=== PATIENT | female | born 1945 | race Caucasian/White ===

== ENCOUNTER 2017-07-11 18:46 | Inpatient (IN) | payer MEDICARE, MEDICAID ==
--- NOTE | 2017-07-11 19:27 | ED Physician Chart ---
ED Chief Complaint/HPI - Patient Information Date Seen:: 07/11/17 Time Seen:: 19:26 Chief Complaint:: Increased agitation History of Present Illness:: 72 yo female was brought from to ER for evaluation of increased agitation, restlessness and crying episodes. When she was in ER, she was restless crying constantly. Allergies:: Allergies Allergy/AdvReac Type Severity Reaction Status Date / Time No Known Allergies Allergy Verified 07/11/17 19:09 Vitals:: Vital Signs - 8 hr 07/11/17 19:01 Temp 97.1 F HR 115 RR 22 BP 97/56 O2 Sat % 97 ED Review of Systems - Review of Systems General/Constitutional: No fever Skin: No skin lesions Head: No headache Eyes: No pain ENT: No nasal drainage Neck: No neck pain Cardio Vascular: No chest pain Pulmonary: No cough GI: No nausea, No vomiting Musculoskeletal: No bone or joint pain Psychiatric: Prior psych history Neurological: Weakness ED Past Medical History - Past Medical History Past Medical History: CVA/TIA (left hemiparesis), Dyslipidemia, PUD/GERD, Other (Anemia, CKD 3, Diverticulosis, Hypertension, diaphragmatic hernia, Paroxysmal Afib) Social History: Non Smoker, No Alcohol, No Drug Use Psychiatricy History: Depression Family Medical History - Family Member Mother History Unknown: Yes ED Physical Exam - Physical Examination General/Constitutional: Awake Head: Atraumatic Eyes: PERRL Skin: No skin lesions ENMT: Nasal exam nl Neck: Nontender Respiratory: No Wheeze/Rhonchi/Rales Cardio Vascular: No murmur, gallop, rubs, NL S1 S2 Other Cardio Vascular comments:: IRR GI: No tenderness/rebounding/guarding Other comments:: wearing diaper Other Neuro/Psych comments:: LUE 2/5, LLE 2/5, RUE 5/5, RLE 5/5 ED Labs/Radiology/EKG Results - Lab Results Results: Laboratory Last Values WBC 9.1 Th/cmm (4.8-10.8) 07/11/17 19:45 RBC 4.04 Mil/cmm (3.80-5.20) 07/11/17 19:45 Hgb 11.8 gm/dL (12-16) L 07/11/17 19:45 Hct 35.3 % (41.0-60) L 07/11/17 19:45 MCV 87.4 fl (81-100) 07/11/17 19:45 MCH 29.2 pg (27.0-31.0) 07/11/17 19:45 MCHC Differential 33.4 pg (28.0-36.0) 07/11/17 19:45 RDW 17.8 % (11.5-20.0) 07/11/17 19:45 Plt Count 300 Th/cmm (150-400) 07/11/17 19:45 MPV 8.7 fl 07/11/17 19:45 Neutrophils % 70.1 % (40.0-80.0) 07/11/17 19:45 Lymphocytes % 23.7 % (20.0-50.0) 07/11/17 19:45 Monocytes % 4.9 % (2.0-10.0) 07/11/17 19:45 Eosinophils % 0.8 % (0.0-5.0) 07/11/17 19:45 Basophils % 0.5 % (0.0-2.0) 07/11/17 19:45 Sodium 137 mEq/L (136-145) 07/11/17 19:45 Potassium 3.9 mEq/L (3.5-5.1) 07/11/17 19:45 Chloride 107 mEq/L (98-107) 07/11/17 19:45 Carbon Dioxide 16.9 mEq/L (21.0-31.0) L 07/11/17 19:45 Anion Gap 17.0 (7.0-16.0) H 07/11/17 19:45 BUN 21 mg/dL (7-25) 07/11/17 19:45 Creatinine 1.1 mg/dL (0.6-1.2) 07/11/17 19:45 Est GFR ( Amer) TNP 07/11/17 19:45 Est GFR (Non-Af Amer) TNP 07/11/17 19:45 BUN/Creatinine Ratio 19.1 07/11/17 19:45 Glucose 124 mg/dL (70-105) H 07/11/17 19:45 Calcium 9.6 mg/dL (8.6-10.3) 07/11/17 19:45 Magnesium 2.1 mg/dL (1.9-2.7) 07/11/17 19:45 Total Bilirubin 0.7 mg/dL (0.3-1.0) 07/11/17 19:45 AST 19 U/L (13-39) 07/11/17 19:45 ALT 12 U/L (7-52) 07/11/17 19:45 Alkaline Phosphatase 56 U/L (34-104) 07/11/17 19:45 Troponin I 0.01 ng/mL (0.01-0.05) 07/11/17 19:45 B-Natriuretic Peptide 194.0 pg/mL (5.0-100.0) H 07/11/17 19:45 Total Protein 7.5 gm/dL (6.0-8.3) 07/11/17 19:45 Albumin 4.0 gm/dL (3.7-5.3) 07/11/17 19:45 Globulin 3.5 gm/dL 07/11/17 19:45 Albumin/Globulin Ratio 1.1 (1.0-1.8) 07/11/17 19:45 Urine Source RANDOM 07/11/17 19:20 Urine Color YELLOW 07/11/17 19:20 Urine Clarity CLEAR (CLEAR) 07/11/17 19:20 Urine pH 8.5 (4.6 - 8.0) 07/11/17 19:20 Ur Specific Otho 1.015 (1.005-1.030) 07/11/17 19:20 Urine Protein NEGATIVE mg/dL (NEGATIVE) 07/11/17 19:20 Urine Glucose (UA) NEGATIVE mg/dL (NEGATIVE) 07/11/17 19:20 Urine Ketones NEGATIVE mg/dL (NEGATIVE) 07/11/17 19:20 Urine Blood NEGATIVE (NEGATIVE) 07/11/17 19:20 Urine Nitrate NEGATIVE (NEGATIVE) 07/11/17 19:20 Urine Bilirubin NEGATIVE (NEGATIVE) 07/11/17 19:20 Urine Urobilinogen 0.2 E.U./dL (0.2 - 1.0) 07/11/17 19:20 Ur Leukocyte Esterase NEGATIVE (NEGATIVE) 07/11/17 19:20 - Radiology Results Results: CXR: Cardiomegaly - EKG Interpretations EKG Time:: 19:55 Rate & Rhythm: 120 bpm, Atrial fibrillation Comments:: Ventricular premature complex, non-specific ST depression ED Assessment - Assessment General Assessment: CHF History of CVA with left hemiparesis Normocytic anemia Dehydration Psychosis Assessment/Comments:: CBC, CMP, UA CXR, EKG Haldol 5mg IM x 1 NS 1L IV bolus (It was hard to establish IV access due to restlessness of patient) Cleared for avinash admit ED Septic Shock - . Is Septic Shock (SBP<90, OR Lactate>4 mmol\L) present?: No - <6hrs of presentation: Vital Signs: Vital Signs - 8 hr 07/11/17 19:01 Temp 97.1 F HR 115 RR 22 BP 97/56 O2 Sat % 97 ED Reassessment (Disposition) - Reassessment Reassessment Condition:: Unchanged - Patient Disposition Discharge/Transfer:: Avinash w/in this hosp
[2017-07-11 19:57] LABS: % BASOPHILS 0.5 % (0.0-2.0); % EOSINOPHILS 0.8 % (0.0-5.0); % LYMPHOCYTES 23.7 % (20.0-50.0); % MONOCYTES 4.9 % (2.0-10.0); % NEUTROPHILS 70.1 % (40.0-80.0); EOSINOPHILE ABSOLUTE 0.1 Th/cmm (0.1-0.4); HEMATOCRIT 35.3 % (41.0-60); HEMOGLOBIN 11.8 gm/dL (12-16); LYMPHOCYTE ABSOLUTE 2.2 Th/cmm (1.5-3.0); MEAN CELL VOLUME 87.4 fl (81-100); MEAN CORPUSCULAR HEMOGLOBIN 29.2 pg (27.0-31.0); MEAN CORPUSCULAR HGB CONC 33.4 pg (28.0-36.0); MEAN PLATELET VOLUME 8.7 fl; MONOCYTE ABSOLUTE 0.4 Th/cmm (0.3-1.0); NEUTROPHILE ABSOLUTE 6.4 Th/cmm (1.8-8.0); PLATELET COUNT 300 Th/cmm (150-400); RED BLOOD COUNT 4.04 Mil/cmm (3.80-5.20); RED CELL DISTRIBUTION WIDTH 17.8 % (11.5-20.0); WHITE BLOOD COUNT 9.1 Th/cmm (4.8-10.8)
[2017-07-11] MEDS ORDERED: Haloperidol Lactate 5 mg/mL 1mL Vial IM STA (20:08)
[2017-07-11] MEDS ORDERED: Haloperidol Lactate 5 mg/mL 1mL Vial ONE (20:11)
[2017-07-11 20:13] LABS: ALB/GLOB RATIO 1.1 (1.0-1.8); ALKALINE PHOSPHATASE 56 U/L (34-104); BILIRUBIN,TOTAL 0.7 mg/dL (0.3-1.0); BUN - UREA NITROGEN 21 mg/dL (7-25); CALCIUM SERUM 9.6 mg/dL (8.6-10.3); CARBON DIOXIDE 16.9 mEq/L (21.0-31.0); CHLORIDE 107 mEq/L (98-107); CREATININE - SERUM 1.1 mg/dL (0.6-1.2); GLUCOSE 124 mg/dL (70-105); MAGNESIUM 2.1 mg/dL (1.9-2.7); POTASSIUM SERUM 3.9 mEq/L (3.5-5.1); SGOT 19 U/L (13-39); SGPT/ALT 12 U/L (7-52); SODIUM SERUM 137 mEq/L (136-145); TOTAL PROTEIN,SERUM 7.5 gm/dL (6.0-8.3)
[2017-07-11 20:21] LABS: URINE SOURCE RANDOM
[2017-07-11 20:59] LABS: URINE BILIRUBIN NEGATIVE (NEGATIVE); URINE BLOOD NEGATIVE (NEGATIVE); URINE GLUCOSE (UA) NEGATIVE (NEGATIVE); URINE KETONE NEGATIVE (NEGATIVE); URINE LEUKOCYTE ESTERASE NEGATIVE (NEGATIVE); URINE NITRATE NEGATIVE (NEGATIVE); URINE PH 8.5 (4.6 - 8.0); URINE PROTEIN NEGATIVE (NEGATIVE); URINE UROBILINOGEN 0.2 E.U./dL (0.2 - 1.0)
[2017-07-11 21:02] LABS: URINE CLARITY CLEAR (CLEAR); URINE COLOR YELLOW; URINE MICROSCOPIC INDICATED? NO
[2017-07-11] MEDS ORDERED: Sodium Chloride 0.9% 1,000 ML IV ONE (21:11)
[2017-07-11] MEDS ORDERED: Maalox 30 mL Cup PO PRN (22:24)
[2017-07-11 23:47] LABS: INR 2.24 (0.5-1.4); PROTHROMBIN TIME (TEST) 24.3 SECONDS (9.5-11.5)
[2017-07-12] MEDS: INSULIN ASPART, RECOMBINANT 100 UNITS/ML SUBQ SCH ×2 (06:38→21:57)
--- NOTE | 2017-07-12 07:53 | Diagnostic Imaging Report ---
CHEST X-RAY: AP view INDICATION: Shortness of breath COMPARISON: None FINDINGS: Increased interstitial lung markings are noted. No focal consolidation or effusions. Cardiomegaly is noted with atherosclerosis. Degenerative changes of spine are noted. Gas-filled loops of bowel of the upper abdomen are noted. IMPRESSION: Increased interstitial lung markings which may represent a mild degree of congestion. Please correlate with clinical findings. No focal consolidation identified. Cardiomegaly and atherosclerotic vascular disease.
[2017-07-12] MEDS: Multivitamin w/ Minerals Tab PO SCH (08:43)
[2017-07-12] MEDS: Pantoprazole 40 mg EC Tab PO SCH (10:52)
--- NOTE | 2017-07-13 05:21 | History & Physical ---
ADMIT DATE: 07/11/2017 INTERNAL MEDICINE CONSULTATION HISTORY OF PRESENT ILLNESS: The patient is a patient of [facility], 72-year-old female, resident of a assisted. PAST MEDICAL HISTORY: Significant for diabetes mellitus, diabetic angiopathy, neuropathy, nephropathy, hypertension, coronary artery disease, CVA with left hemiplegia, paroxysmal atrial fibrillation, peptic ulcer disease, gastritis, arthritis, osteoporosis, anemia, hyperlipidemia and dementia. SOCIAL HISTORY: No documented smoking or alcohol abuse. FAMILY HISTORY: Not available. REVIEW OF SYSTEMS: No vomiting, no diarrhea, no melena, no hematochezia. No new neurological symptoms. PHYSICAL EXAMINATION: GENERAL: Average female in no obvious respiratory distress. VITAL SIGNS: Include a blood pressure of 110/70, heart rate 88, respiration rate of 18. SKIN: Shows no cellulitis. HEENT: Normal conjunctivae. NECK: Supple. LUNGS: Clear. HEART: First and second present. ABDOMEN: Soft, minimal epigastric tenderness. Bowel sounds present. EXTREMITIES: Arthritis. NEUROLOGIC: The patient has a left hemiplegia. LABORATORY DATA: Include white count 9.1, hemoglobin 11.8, hematocrit 35.3, platelet count of 300. Sodium 137, potassium 3.9, chloride 107, bicarb 16.9, BUN 12, creatinine 1.1, blood sugar 124. ADMITTING DIAGNOSES: Diabetes mellitus, diabetic angiopathy, neuropathy, nephropathy, hypertension, coronary artery disease, cerebrovascular accident with left hemiplegia, paroxysmal atrial fibrillation, peptic ulcer disease, arthritis, osteoporosis, anemia, hyperlipidemia and chronic kidney disease. MEDICATIONS: Include Tylenol, Maalox, Lanoxin, sliding scale, Glucophage, Lopressor, Protonix, Zoloft, Zocor, and Coumadin. JOB# [id number]
[2017-07-13] MEDS: Pantoprazole 40 mg EC Tab PO SCH (06:48)
[2017-07-13] MEDS: INSULIN ASPART, RECOMBINANT 100 UNITS/ML SUBQ SCH ×4 (06:55→21:05)
[2017-07-13] MEDS: Multivitamin w/ Minerals Tab PO SCH (09:23)
--- NOTE | 2017-07-14 03:43 | Psychosocial Evaluation ---
DATE OF SERVICE: 07/13/2017 IDENTIFYING DATA: The patient is a 72-year-old resident of [facility]. Information obtained directly by interviewing the patient as well as reviewing the admission papers and they are reliable. JUSTIFICATION FOR HOSPITALIZATION: The patient is admitted here on a voluntary basis in view of her depression and out of control behaviors. CHIEF COMPLAINT: "I don't know. I am feeling depressed." HISTORY OF PRESENT ILLNESS: This is the first psychiatric hospitalization to [facility] for this patient who is reported to have been diagnosed with depression and has been maintained on Zoloft. On the day of the hospitalization, the patient is reported to have been getting easily irritable, angry and could not be redirected and hence the patient has been brought over here for stabilization. At the time of the evaluation, I tried to get some information, but the patient has been not providing much information and is getting easily frustrated, stating that there is no reason for her to be in here. Sleep and appetite prior to the hospitalization are reported to be poor. MEDICAL HISTORY AND PHYSICAL EXAMINATION: Significant for the patient having diabetes mellitus, hypertension, coronary artery disease, CVA with left hemiplegia, paroxysmal atrial fibrillation, and peptic ulcer disease. SUBSTANCE ABUSE HISTORY: None. PHYSICAL OR SEXUAL ABUSE HISTORY: None. LEGAL PROBLEMS: None at this time. STRENGTH AND ASSETS: The patient is motivated. MENTAL STATUS EXAMINATION: The patient is a 72-year-old, looking her stated age, superficially cooperative. Mood is noted to be depressed. Affect is constricted. The patient has short-term memory deficits. Long-term memory seems to be fair at this time. Insight and judgment are very much impaired. Impulse control is very poor. The patient has been having difficult time to cope with the stress. The patient is getting easily irritable and angry. DIAGNOSTIC IMPRESSION: AXIS I: Major depressive disorder by history. AXIS II: None. AXIS III: As per Dr. Oh. IMMEDIATE TREATMENT PLAN: The patient is going to be observed on inpatient unit, provided with supportive psychotherapy. The patient is going to be encouraged to participate in groups and verbalize the concerns rather than to act out. JOB# [id number]
[2017-07-14] MEDS: Pantoprazole 40 mg EC Tab PO SCH (06:32)
[2017-07-14] MEDS: INSULIN ASPART, RECOMBINANT 100 UNITS/ML SUBQ SCH ×4 (06:33→20:26)
[2017-07-14] MEDS: Multivitamin w/ Minerals Tab PO SCH (09:28)
--- NOTE | 2017-07-14 22:53 | Progress Notes ---
DATE: 07/14/2017 PSYCHIATRIC PROGRESS NOTE SUBJECTIVE: Staff was spoken to. The patient is interviewed. Mood is noted to be depressed. Affect is constricted. The patient is isolative and withdrawn. Insight and judgment noted to be still impaired. Impulse control is noted to be poor. The patient has been having difficult time to cope with the stress. The patient has been presenting with anxiety symptoms. The patient is closely monitored at this time and encouraged to participate in the groups and verbalize the concerns. ASSESSMENT: The patient is still depressed and anxious. PLAN: To continue the patient with Zoloft and use the Ativan as a p.r.n. and followup. JOB# [id number]
[2017-07-15] MEDS: INSULIN ASPART, RECOMBINANT 100 UNITS/ML SUBQ SCH ×3 (06:32→20:00)
[2017-07-15] MEDS: Pantoprazole 40 mg EC Tab PO SCH (06:32)
[2017-07-15] MEDS: Multivitamin w/ Minerals Tab PO SCH (08:56)
--- NOTE | 2017-07-15 16:35 | Consultation ---
DATE OF CONSULTATION: 07/14/2017 REFERRING PHYSICIAN: Jonas Spencer MD TYPE OF CONSULTATION: Psychology. HISTORY OF PRESENT ILLNESS: The patient is a 72-year-old female who is a resident of [facility]. 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 The following is by record review as well as by the patient's self-report. The patient is being admitted due to increased depression as well as out of control behaviors as reported by the staff at her facility. Upon interview, the patient states that she is feeling depressed. The patient according to the staff at her facility had been getting easily irritated and angry with difficulty being redirected. The patient presents as easily frustrated and states that there is no reason for her to be in the hospital. The patient does admit to be feeling depressed. She denied any suicidal ideation, plan or intention. PAST MEDICAL HISTORY: Please see history and physical by Dr. Oh. SUBSTANCE ABUSE HISTORY: None. PAST PSYCHIATRIC HISTORY: The patient has a history of depression and is under the care of both a psychiatrist and psychologist at her [place] [facility] facility. PSYCHOSOCIAL HISTORY: The patient is a resident of [facility]. The patient has family support there. The patient did not answer questions about occupational or educational history. The patient's protestant affiliation is Anglican. The patient denied any history of physical or sexual abuse or any current legal problems. The patient will return to [facility]. MENTAL STATUS EXAMINATION: The patient appears to be her stated age. The patient's attitude is generally cooperative. Eye contact is fair. Speech is spontaneous. Mood is depressed. Affect is constricted. Thought process is focused on discharging from the hospital and the patient states she does not feel she needs to be hospitalized. The patient denied any auditory or visual hallucinations or any delusions. The patient's behavior on the unit has been difficult with respect to complying with staff direction. Impulse control is poor. Concentration is poor. The patient did not participate in the memory assessment. Sensorium is alert and oriented to person and place. The patient did not participate in the interpretation of proverbs. Insight is poor. Judgment is poor. DIAGNOSTIC IMPRESSION: AXIS I: History of major depressive disorder, recurrent, severe. AXIS II: Deferred. AXIS III: Please see history and physical by Dr. Oh. TREATMENT PLAN: The patient has been seen by Dr. Spencer for psychiatric evaluation and for the management of the patient's psychotropic medications. We will provide supportive psychotherapy to include simple a de-escalation skill as well as stress management for the patient to increase her frustration tolerance. We will provide coping mechanisms for the patient to be able to demonstrate emotional and self-regulation. We will provide coping strategies for phase of life issues. We will also provide cognitive behavioral therapy to reduce the patient's depression. We will encourage the patient to verbalize her concerns as well as become compliant and stay compliant with all aspects of her care and treatment. Thank you, Dr. Spencer for this consult and the opportunity to participate with you in this patient's care. [facility]# [id number] HEATHER
--- NOTE | 2017-07-15 18:57 | Progress Notes ---
DATE: 07/15/2017 PSYCHIATRIC PROGRESS NOTE SUBJECTIVE: Staff was spoken to. The patient is interviewed. Mood is noted to be irritable. Affect is constricted. The patient has been screaming and yelling at the top of her lungs and the patient has to be given a dose of medications to contain her agitated behavior. The patient does not stop screaming and yelling. The patient is currently on 100 mg of the sertraline and has been able to tolerate it. No side effects to the medications are noted. In view of her acute agitation, it is decided to place the patient on Haldol 1 mg b.i.d. and follow the patient up with supportive therapy. The patient at this time is very agitated and psychotic and is not able to contract for safety. ASSESSMENT: The patient is impulsive and psychotic. PLAN: To continue the patient with supportive therapy. I encouraged the patient to verbalize the concerns rather than to act out. JOB# [id number]
[2017-07-16] MEDS: Pantoprazole 40 mg EC Tab PO SCH (06:31)
[2017-07-16] MEDS: INSULIN ASPART, RECOMBINANT 100 UNITS/ML SUBQ SCH ×4 (06:34→20:12)
[2017-07-16] MEDS: Multivitamin w/ Minerals Tab PO SCH (09:46)
--- NOTE | 2017-07-16 13:22 | Progress Notes ---
DATE: 07/16/2017 SUBJECTIVE: Staff was spoken to. The patient is interviewed. Mood is noted to be irritable. Affect is constricted. The patient is fixated on her bowel movement and the patient has been asking the staff to change diapers frequently and ____. Staff have been trying to attend to the patient. The patient continues to be focused on her bowel movements. The patient has no insight into her illness. Coping skills are noted to be very poor. ASSESSMENT: The patient is still very paranoid. PLAN: To continue the patient with the supportive therapy. I encouraged the patient to verbalize the concerns rather than to act out. JOB# [id number]
[2017-07-17] MEDS: INSULIN ASPART, RECOMBINANT 100 UNITS/ML SUBQ SCH ×4 (06:42→21:12)
[2017-07-17] MEDS: Pantoprazole 40 mg EC Tab PO SCH (06:43)
[2017-07-17] MEDS: Multivitamin w/ Minerals Tab PO SCH (08:07)
--- NOTE | 2017-07-18 00:01 | Progress Notes ---
DATE: 07/17/2017 PSYCHIATRIC PROGRESS NOTE SUBJECTIVE: Staff was spoken to. The patient is interviewed. Mood is noted to be irritable. Affect is constricted. Coping skills are noted to be poor. The patient has been having difficult time to cope with the stress. The patient is screaming and yelling and has been preoccupied with the need for the diaper needs to be changed. The patient is not able to contract for safety at this time. The patient has been placed on haloperidol and has been able to tolerate the medication. JOB# [id number]
[2017-07-18] MEDS: INSULIN ASPART, RECOMBINANT 100 UNITS/ML SUBQ SCH ×3 (06:34→17:24)
[2017-07-18] MEDS: Pantoprazole 40 mg EC Tab PO SCH (06:34)
[2017-07-18] MEDS: Multivitamin w/ Minerals Tab PO SCH (09:09)
--- NOTE | 2017-07-18 22:27 | Progress Notes ---
DATE: 07/18/2017 PSYCHIATRIC PROGRESS NOTE SUBJECTIVE: Staff was spoken to. The patient is interviewed. Mood is noted to be irritable. Affect is constricted. Insight and judgment at this time are noted to be still impaired. Impulse control seems to be poor. The patient keeps on screaming and yelling and asked for them to change the diapers. The patient's coping skills are noted to be very poor at this time. No side effects to the medications are noted. The patient has been having difficult time to cope with the stress. The patient is having dry throat because of constant crying. ASSESSMENT: The patient is still psychotic. PLAN: To closely monitor the patient and continue the patient with sertraline 50 mg and a low dose of the Seroquel at nighttime and follow the patient up with supportive therapy. JOB# [id number]
[2017-07-19] MEDS: INSULIN ASPART, RECOMBINANT 100 UNITS/ML SUBQ SCH ×4 (06:32→21:16)
[2017-07-19] MEDS: Pantoprazole 40 mg EC Tab PO SCH (06:32)
[2017-07-19] MEDS: Multivitamin w/ Minerals Tab PO SCH (09:32)
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
[2017-07-20] MEDS: Pantoprazole 40 mg EC Tab PO SCH (06:37)
[2017-07-20] MEDS: INSULIN ASPART, RECOMBINANT 100 UNITS/ML SUBQ SCH ×4 (06:38→20:27)
[2017-07-20] MEDS: Multivitamin w/ Minerals Tab PO SCH (10:06)
--- NOTE | 2017-07-21 03:33 | Progress Notes ---
DATE: 07/20/2017 PSYCHIATRIC PROGRESS NOTE SUBJECTIVE: Staff was spoken to. The patient is interviewed. Mood is noted to be irritable. Affect is constricted. The patient is stating that she has a need for the diaper to be changed. The patient is preoccupied with her bowels. The patient's crying spells have been coming down. No side effects to the medications are noted at this time. The patient is still impulsive and agitation has been coming down, but the patient's insight and judgment are noted to be improving and the patient has been able to tolerate the Seroquel and hence the Haldol is going to be discontinued and the patient is going to be followed up with the supportive therapy. At this time, the patient is on 50 mg of the Zoloft in the morning and 25 mg of the Seroquel at night time, the patient has been able to tolerate. ASSESSMENT: The patient's depression is resolving. PLAN: To continue the patient with the supportive therapy and followup. JOB# [id number]
--- NOTE | 2017-07-21 04:01 | Progress Notes ---
DATE: 07/20/2017 SUBJECTIVE: The patient is a 72-year-old female. No new chest pain. No short of breath. No nausea, no vomiting, no palpitation, no dizziness, no neurological symptoms. Blood sugar stable. PHYSICAL EXAMINATION: VITAL SIGNS: Stable. SKIN: Had no cellulitis, no ulcer. LUNGS: Clear bilateral, good air entry. No adventitious sounds. HEART: First and second present. ABDOMEN: Soft, bowel sounds present and good. EXTREMITIES: Show arthritis. NEUROLOGIC: The patient has left hemiplegia with no changes. CURRENT MEDICAL DIAGNOSES: Include diabetes mellitus, diabetic angiopathy, neuropathy, hypertension, coronary artery disease, cerebrovascular accident with left hemiplegia, peptic ulcer disease, paroxysmal atrial fibrillation, arthritis, osteoporosis, anemia, hyperlipidemia and chronic kidney disease. MEDICINES: As per JENNIFER. JOB# [id number]
[2017-07-21] MEDS: INSULIN ASPART, RECOMBINANT 100 UNITS/ML SUBQ SCH (06:35)
[2017-07-21] MEDS: Pantoprazole 40 mg EC Tab PO SCH (06:35)
[2017-07-21] MEDS: Multivitamin w/ Minerals Tab PO SCH (08:49)
--- NOTE | 2017-07-22 02:21 | Progress Notes ---
DATE: 07/21/2017 SUBJECTIVE: Staff was spoken to. The patient is interviewed. Mood is noted to be anxious. Affect is appropriate. The patient is not suicidal or homicidal. The patient has paranoia is noted, but the patient denies any command hallucinations. Insight and judgment at this time are noted to be improving. Impulse control seems to be fair. No side effects to the medications are noted. ASSESSMENT: The patient is stabilizing. PLAN: To discharge the patient today for followup on outpatient basis. JOB# [id number]
--- NOTE | 2017-07-22 16:25 | Progress Notes ---
DATE: 07/21/2017 CHIEF COMPLAINT: Blood sugar is stable. No new symptoms. No acute infection. No fall. No neurological symptoms. No palpitation or dizziness. OBJECTIVE: VITAL SIGNS: Stable. LUNGS: Clear. HEART: First ____ present. ABDOMEN: Soft. Bowel sounds appeared good. Kidneys are not palpable. EXTREMITIES: Shows arthritis. NEUROLOGIC: The patient has chronic old left hemiplegia. MEDICAL DIAGNOSES: Continues to be same; diabetes mellitus, diabetic angiopathy and neuropathy, hypertension, coronary artery disease, cerebrovascular accident with left hemiplegia, paroxysmal atrial fibrillation, peptic gastritis, arthritis, anemia, hyperlipidemia and chronic kidney disease. PLAN: The patient will continue medicines as per APR. Psych consult reviewed. [facility]# [id number]
== END 2017-07-21 11:00 | DRG 885 ==
LOC: ER 18:46 → GERO2 21:30 → GERO 22:17
PROVIDERS: ADMIT Psychiatry & Neurology Psychiatry; ATTEND Psychiatry & Neurology Psychiatry
DX: F33.2 Major depressive disorder, recurrent severe without psychotic features (principal); N18.3 Chronic kidney disease, stage 3 (moderate); I69.354 Hemiplegia and hemiparesis following cerebral infarction affecting left non-dominant side; I13.0 Hypertensive heart and chronic kidney disease with heart failure and stage 1 through stage 4 chronic kidney disease, or unspecified chronic kidney disease; F29 Unspecified psychosis not due to a substance or known physiological condition; I50.9 Heart failure, unspecified; D64.9 Anemia, unspecified; E86.0 Dehydration; E11.40 Type 2 diabetes mellitus with diabetic neuropathy, unspecified; E11.51 Type 2 diabetes mellitus with diabetic peripheral angiopathy without gangrene; I25.10 Atherosclerotic heart disease of native coronary artery without angina pectoris; K27.9 Peptic ulcer, site unspecified, unspecified as acute or chronic, without hemorrhage or perforation; M19.90 Unspecified osteoarthritis, unspecified site; M81.0 Age-related osteoporosis without current pathological fracture; E78.5 Hyperlipidemia, unspecified; E11.22 Type 2 diabetes mellitus with diabetic chronic kidney disease; K21.9 Gastro-esophageal reflux disease without esophagitis; I48.0 Paroxysmal atrial fibrillation; K29.70 Gastritis, unspecified, without bleeding
CPT/HCPCS: 36415-UA; 71045-TC; 80053-TC; 81003-TC; 82948-90; 83735-TC; 83880-TC; 84484-TC; 85025-TC; 85610-TC; 86592-TC; 93005; J1630; J1815; J2060; Z7610

== ENCOUNTER 2018-04-06 19:18 | Inpatient (IN) | payer MEDICARE, MEDICAID ==
--- NOTE | 2018-04-06 19:58 | ED Physician Chart ---
ED Chief Complaint/HPI - Patient Information Date Seen:: 04/06/18 Time Seen:: 19:54 Chief Complaint:: agitation for geropsych evaluation History of Present Illness:: 73 yr old female for geropsych eval Allergies:: Allergies Allergy/AdvReac Type Severity Reaction Status Date / Time No Known Allergies Allergy Verified 07/11/17 19:09 Vitals:: Vital Signs - 8 hr 04/06/18 19:25 Temp 97.8 F HR 75 RR 19 BP 104/46 O2 Sat % 100 ED Review of Systems - Review of Systems General/Constitutional: No fever, No chills, No weight loss, No weakness, No diaphoresis, No edema, No loss of appetite Skin: No skin lesions, No rash, No bruising Head: No headache, No light-headedness Eyes: No loss of vision, No pain, No diplopia ENT: No earache, No nasal drainage, No sore throat, No tinnitus Neck: No neck pain, No swelling, No thyromegaly, No stiffness, No mass noted Cardio Vascular: No chest pain, No palpitations, No PND, No orthopnea, No edema Pulmonary: No SOB, No cough, No sputum, No wheezing GI: No nausea, No vomiting, No diarrhea, No pain, No melena, No hematochezia, No constipation, No hematemesis G/U: No dysuria, No frequency, No hematuria Musculoskeletal: No bone or joint pain, No back pain, No muscle pain Endocrine: No polyuria, No polydipsia Psychiatric: No prior psych history, No depression, No anxiety, No suicidal ideation Hematopoietic: No bruising, No lymphadenopathy Allergic/Immuno: No urticaria, No angioedema Neurological: No syncope, No focal symptoms, No weakness, No paresthesia, No headache, No seizure, No dizziness, No confusion, No vertigo Family Medical History - Family Member Mother History Unknown: Yes Ethnicity: Unknown Living Status: Unknown Hx Family Cancer: (unknown) Hx Family Coronary Artery Disease: (unknown) Hx Family Congestive Heart Failure: (unknown) Hx Family Hypertension: (unknown) Hx Family Stroke: (unknown) Hx Family Diabetes: (unknown) Hx Family Seizures: (unknown) Hx Family Dementia: (unknown) Hx Family AIDS: (unknown) Hx Family COPD: (unknown) Hx Family Hepatitis: (unknown) Hx Family Psychiatric Problems: (unknown) Hx Family Tuberculosis: (unknown) ED Physical Exam - Physical Examination General/Constitutional: Awake, Well-developed, well-nourished, Alert, No distress, GCS 15, Non-toxic appearing, Ambulatory Head: Atraumatic Eyes: Lids, conjuctiva normal, PERRL, EOMI Skin: Nl inspection, No rash, No skin lesions, No ecchymosis, Well hydrated, No lymphadenopathy ENMT: External ears, nose nl, Nasal exam nl, Lips, teeth, gums nl Neck: Nontender, Full ROM w/o pain, No JVD, No nuchal rigidity, No bruit, No mass, No stridor Respiratory: Nl effort/Exclusion, Clear to Auscultation, No Wheeze/Rhonchi/Rales Cardio Vascular: RRR, No murmur, gallop, rubs, NL S1 S2 GI: No tenderness/rebounding/guarding, No organomegaly, No hernia, Normal BS's, Nondistended, No mass/bruits, No McBurney tenderness : No CVA tenderness Extremities: No tenderness or effusion, Full ROM, normal strength in all extremities, No edema, Normal digits & nails Neuro/Psych: Alert/oriented, DTR's symmetric, Normal sensory exam, Normal motor strength, Judgement/insight normal, Mood normal, Normal gait, No focal deficits Misc: Normal back, No paraspinal tenderness ED Assessment - Assessment General Assessment: psychosis for tamir psych evaluation ED Septic Shock - . Is Septic Shock (SBP<90, OR Lactate>4 mmol\L) present?: No - <6hrs of presentation: Vital Signs: Vital Signs - 8 hr 04/06/18 19:25 Temp 97.8 F HR 75 RR 19 BP 104/46 O2 Sat % 100 ED Reassessment (Disposition) - Reassessment Reassessment:: psychosis for tamir psych evaluation - Diagnosis Diagnosis:: as above - Patient Disposition Discharge/Transfer:: Acute Care w/in this hosp Condition at Disposition:: Stable
[2018-04-06 20:03] LABS: % BASOPHILS 0.8 % (0.0-2.0); % EOSINOPHILS 1.7 % (0.0-5.0); % LYMPHOCYTES 31.1 % (20.0-50.0); % MONOCYTES 7.8 % (2.0-10.0); % NEUTROPHILS 58.6 % (40.0-80.0); BASOPHILE ABSOLUTE 0.1 Th/cumm (0-0.2); EOSINOPHILE ABSOLUTE 0.1 Th/cmm (0.1-0.4); HEMOGLOBIN 12.1 gm/dL (12-16); LYMPHOCYTE ABSOLUTE 2.5 Th/cmm (1.5-3.0); MEAN CELL VOLUME 94.9 fl (81-100); MEAN CORPUSCULAR HGB CONC 32.7 pg (28.0-36.0); MEAN PLATELET VOLUME 9.5 fl; MONOCYTE ABSOLUTE 0.6 Th/cmm (0.3-1.0); NEUTROPHILE ABSOLUTE 4.7 Th/cmm (1.8-8.0); PLATELET COUNT 285 Th/cmm (150-400); RED CELL DISTRIBUTION WIDTH 12.7 % (11.5-20.0)
[2018-04-06 20:16] LABS: ALB/GLOB RATIO 1.3 (1.0-1.8); ALBUMIN 4.4 gm/dL (3.7-5.3); ALKALINE PHOSPHATASE 62 U/L (34-104); ANION GAP 17.9 (7.0-16.0); BILIRUBIN,TOTAL 0.9 mg/dL (0.3-1.0); BUN - UREA NITROGEN 29 mg/dL (7-25); CALCIUM SERUM 10.3 mg/dL (8.6-10.3); CARBON DIOXIDE 23.4 mEq/L (21.0-31.0); CHLORIDE 101 mEq/L (98-107); GLUCOSE 116 mg/dL (70-105); POTASSIUM SERUM 3.3 mEq/L (3.5-5.1); SGOT 17 U/L (13-39); SGPT/ALT 3 U/L (7-52); SODIUM SERUM 139 mEq/L (136-145); TOTAL PROTEIN,SERUM 7.7 gm/dL (6.0-8.3)
[2018-04-06 20:51] LABS: URINE SOURCE CLEAN C
[2018-04-06 20:53] LABS: URINE BILIRUBIN NEGATIVE (NEGATIVE); URINE BLOOD TRACE (NEGATIVE); URINE GLUCOSE (UA) NEGATIVE (NEGATIVE); URINE KETONE NEGATIVE (NEGATIVE); URINE LEUKOCYTE ESTERASE MODERATE (NEGATIVE); URINE MICROSCOPIC INDICATED? YES; URINE NITRATE NEGATIVE (NEGATIVE); URINE PH 7.5 (4.6 - 8.0); URINE PROTEIN NEGATIVE (NEGATIVE); URINE UROBILINOGEN 0.2 E.U./dL (0.2 - 1.0)
[2018-04-06 21:04] LABS: URINE CLARITY CLEAR (CLEAR); URINE COLOR YELLOW; URINE RBC NONE SEEN /hpf (0-5)
[2018-04-06 21:05] LABS: URINE BACTERIA MODERATE /hpf (NONE SEEN); URINE EPITHELIAL CELLS FEW /lpf (FEW)
[2018-04-06] MEDS ORDERED: Potassium Chloride 20 mEq ER Tab PO ONE ×2 (21:37→21:41)
[2018-04-07 00:38] VITALS: BP 111/77
[2018-04-07] MEDS ORDERED: Maalox 30 mL Cup PO PRN (00:38)
[2018-04-07] MEDS ORDERED: Magnesium Hydroxide (MOM) 30 mL UDC PO PRN (00:38)
[2018-04-07 01:41] LABS: CHOLESTEROL 135 mg/dL (<200); HDL -HIGH DENSITY LIPOPROTEIN 52 mg/dL (23-92); TRIGLYCERIDES 170 mg/dL (<150)
[2018-04-07] MEDS: Multivitamin Tab PO SCH (08:49)
--- NOTE | 2018-04-07 09:40 | Diagnostic Imaging Report ---
CHEST X-RAY: AP view INDICATION: Shortness of breath COMPARISON: None FINDINGS: Chronic lung changes are noted. There is a large retrocardiac hiatal hernia with air-fluid level. There is no focal consolidation or pleural effusions . Cardiomegaly is noted with atherosclerosis. Degenerative changes of the spine are noted. IMPRESSION: Chronic lung changes with no focal consolidation identified. Large retrocardiac hiatal hernia with air-fluid level. Atherosclerotic vascular disease.
--- NOTE | 2018-04-07 20:35 | Progress Notes ---
DATE: SUBJECTIVE: The patient was seen, chart reviewed, and discussed with staff. The patient continues to be very confused, confabulating, answers and generally minimizing events. She has, however, been compliant with medications. Denies any undue side effects and has generally been redirectable following unit rules with interactions. PLAN: The patient continues to be very confused and disoriented, so that she will require inpatient care facility stabilization and treatment. We will monitor patient on a daily basis for response to medications and titrate meds as needed. JOB# [id number]
[2018-04-08] MEDS: Multivitamin Tab PO SCH (09:06)
--- NOTE | 2018-04-09 04:44 | Progress Notes ---
DATE: SUBJECTIVE: The patient is seen, chart reviewed, and discussed with staff. The patient continues to be very confused, disoriented, often confabulating most of her answers. She has been compliant with medications. Denies any undue side effects and did not require any p.r.n. medications. Sleep and appetite have been within normal range. PLAN: The patient continues to be confused, disoriented. It is felt that she will require continued inpatient care for stabilization and treatment. We will monitor the patient on a daily basis for response to medications and titrate medications as needed. JOB# [id number]
[2018-04-09] MEDS: Multivitamin Tab PO SCH (08:05)
--- NOTE | 2018-04-09 08:25 | History & Physical ---
ADMIT DATE: 04/08/2018 INTERNAL MEDICINE CONSULTATION HISTORY OF PRESENT ILLNESS: The patient is a 73-year-old female resident [facility] a [facility]. Current medical problems include COPD, coronary artery disease, arthritis, peptic ulcer disease, residual left Garcia's palsy. The patient does have a history of diabetes, hypertension, hyperlipidemia in the past. Currently, not on any medicines. SOCIAL HISTORY: No history of smoking, alcohol abuse. OBSTETRIC HISTORY: P2+0. Menses are postmenopausal. REVIEW OF SYSTEMS: No chest pain, no shortness of breath. No nausea, no vomiting. The patient is complaining of psychosomatic symptoms of generalized burning and itching. PHYSICAL EXAMINATION: GENERAL: Average female in obvious respiratory distress. VITAL SIGNS: Include a blood pressure 140/80, heart rate 80, respiration rate of 18. SKIN: Show no cellulitis, no rash. HEENT: Normal conjunctivae. NECK: Supple. LUNGS: Clear. HEART: First and second heart sounds are normal. Systolic present. ABDOMEN: Soft, bowel sounds present. EXTREMITIES: Show arthritis. NEUROLOGIC: The patient has left residual Garcia's palsy. LABS: Include white count 8, hemoglobin 12.1, hematocrit 37, and platelet count 285. Sodium 139, potassium 3.3, chloride 101, bicarbonate 23.4, BUN 29, creatinine of 1.0, glucose of 116. LFTs unremarkable. Cholesterol 135. CURRENT MEDICAL DIAGNOSES: Include history of COPD, residual left Garcia's palsy, peptic ulcer disease, gastritis, arthritis, osteoporosis, history of diabetes, hypertension, currently not on any medicine. CURRENT MEDICATIONS: Include Mylanta, milk of magnesia, Tylenol, rest of medicine as per psychiatrist. JOB# [id number]
--- NOTE | 2018-04-15 07:05 | Discharge Summary ---
DATE OF DISCHARGE: 04/09/2018 PATIENT'S AGE: 73. SEX: Female. PHYSICIAN: Bettye Rodriguez MD, MPH FINAL DIAGNOSIS: PRIMARY DIAGNOSES: Depressive mood disorder, moderate to severe, without psychotic features. REASON FOR HOSPITALIZATION: The patient was admitted to the hospital because of increased depression and hopeless and helpless feelings. HOSPITAL COURSE: The patient continued to be severely anxious and in a depressed mood. The patient was given Lexapro in a dose of 5 mg every day and also Remeron. Gradually, the patient's affect was brighter and family did not want the patient to stay in the hospital and the patient was discharged. Physical exam of the patient showed that the patient has COPD as well as coronary artery disease, arthritis, peptic ulcer disease and the residual left Garcia's palsy. AFTER DISCHARGE PLANS: The patient will continue to take her medications and follow up as an outpatient. EXPECTED OUTCOME AFTER DISCHARGE: Fair if the patient continues to take her psychotropic medications and follow up with discharge plans. [facility]# [id number]
--- NOTE | 2018-04-17 12:51 | Psychiatric Evaluation ---
DATE OF SERVICE: INITIAL EVALUATION AND MENTAL STATUS EXAM CHIEF COMPLAINT: Confusion and agitation. HISTORY OF PRESENT ILLNESS: The patient is a 73-year-old female who was admitted to the hospital because of increased confusion and increased agitation. The patient also was not able to follow any directions and has been restless. The patient also was not been able to be handled by the staff and/or family. PAST PSYCHIATRIC HISTORY: Not known. PAST MEDICAL HISTORY: No major medical issues. SOCIAL HISTORY: No known alcohol or drug use. MENTAL STATUS EXAMINATION: The patient appears her stated age. Anxious. Cooperative. In a depressed mood. Thought processes are circumstantial, but no flight of ideas. The patient denies hallucinations or delusions and denies suicide or homicide. The patient is alert and oriented to time, place, person, and situation. Unable to assess her memory at this time because of her inability to cooperate and answer questions. ASSESSMENT: PRIMARY DIAGNOSIS: Depressive mood disorder, severe, with psychotic features. MEDICAL DIAGNOSES: 1. Hypertension. 2. Insulin-dependent diabetes. TREATMENT PLAN: We will monitor the patient's behavior and condition closely. We will start the patient on Remeron and we will adjust the dose. Also, we will work on behavioral modification and work on her ineffective coping. Also, continue Lexapro 5 mg every day. ESTIMATED LENGTH OF STAY: 5-7 days. THE PATIENT'S STRENGTHS AND WEAKNESSES: The patient's strength is not clear at this time except supportive family. Weakness is ineffective coping. AFTER DISCHARGE PLAN: Outpatient treatment and followup to continue as an outpatient. [facility]# [id number]
== END 2018-04-09 17:25 | disposition short-term general hospital (02) | DRG 885 ==
LOC: ER 19:18 → GERO 22:00
PROVIDERS: ADMIT Psychiatry & Neurology Psychiatry; ATTEND Psychiatry & Neurology Psychiatry
DX: F32.2 Major depressive disorder, single episode, severe without psychotic features (principal); I10 Essential (primary) hypertension; E11.9 Type 2 diabetes mellitus without complications; J44.9 Chronic obstructive pulmonary disease, unspecified; I25.10 Atherosclerotic heart disease of native coronary artery without angina pectoris; M19.90 Unspecified osteoarthritis, unspecified site; K27.9 Peptic ulcer, site unspecified, unspecified as acute or chronic, without hemorrhage or perforation; G51.0 Bell's palsy; E78.5 Hyperlipidemia, unspecified; K29.70 Gastritis, unspecified, without bleeding; M81.0 Age-related osteoporosis without current pathological fracture; Z79.4 Long term (current) use of insulin
CPT/HCPCS: 36415-UA; 71045-TC; 80053-TC; 80061-TC; 81001-TC; 83036-90; 84132-TC; 85025-TC; 87086-90; 93005; J0696; J2185; Z7610